=== PATIENT | female | born 1950 | race Caucasian/White ===

== ENCOUNTER 2018-12-09 06:59 | Inpatient (IN) | payer OTHER, MEDICARE ==
[2018-11-27 08:50] LABS: HEMATOCRIT 40.5 % (37.0-47.0); HEMOGLOBIN 13.8 gm/dL (12.0-15.0); MCHC 34.1 g/dL (28.0-37.0); MCV 90.8 fL (80.0-100.0); MPV 7.3 fl. (7.2-11.1); RBC 4.46 mil/uL (4.20-5.00); RDW-CV 13.7 % (10.5-14.5); WBC 8.1 thou/uL (4.0-11.0)
[2018-11-27 08:59] LABS: PROTIME 10.7 Seconds (9.20-11.50)
[2018-11-27 09:03] LABS: URINE BILIRUBIN NEGATIVE (Negative); URINE BLOOD NEGATIVE (Negative); URINE CLARITY CLEAR; URINE COLOR YELLOW; URINE GLUCOSE-RANDOM NEGATIVE (Negative); URINE KETONES NEGATIVE (Negative); URINE LEUKOCYTES-REFLEX NEGATIVE (Negative); URINE NITRITE-REFLEX NEGATIVE (Negative); URINE PROTEIN 1+ (Negative); URINE UROBILINOGEN 0.2 E.U./dl (0.2-1.0)
[2018-11-27 09:03] LABS: ALBUMIN 3.3 g/dL (3.4-5.0); CALCIUM 9.2 mg/dL (8.5-10.1); CREATININE 0.8 mg/dL (0.6-1.3); TOTAL BILIRUBIN 0.4 mg/dL (<0.1-1.0); TOTAL PROTEIN 6.9 g/dL (6.4-8.2)
--- NOTE | 2018-11-27 12:10 | EKG ---
[place] [address] ELECTROCARDIOGRAM REPORT Name: JEANNIE BALLNA JAMES Room: PRE IN [facility].#: [id number] Admission: Attend Phys: Memo Serrano Discharge: Date of : 48 Report #: [id number] THIS REPORT FOR: //name// [facility] Test Date: 2018-11-27 Test Time: 09:32:57 Pat Name: RAVEN BALL Department: Room: Gender: F [employer]: : 1950 Requested By: Bryson Vega Order Number: [id number] Reading MD: Stephen Ko Measurements Intervals [place] Rate: 70 P: 66 CA: 152 QRS: 52 QRSD: 95 T: 29 QT: 400 QTc: 432 Interpretive Statements Sinus rhythm No previous ECG available for comparison Electronically Signed On 11-27-2018 12:09:58 CDT by Stephen Ko [email or web address] <ELECTRONICALLY SIGNED> By: Stephen Ko MD, [facility] 11/27/18 1209 0932 0932 Stephen Ko MD, FACC /EPI
[~2018-12-09] VITALS: Ht 167.6 cm; Wt 90.7 kg
[~2018-12-09 06:59] MED LIST: LISINOPRIL40 MG PO; LOPRESSOR50 PO; METFORMIN HCL500 MG PO; PIOGLITAZONE15 MG; TRESIBA100 UNIT/1 SUBQ; ZOCOR80 MG PO
[2018-12-09 12:19] VITALS: BP 152/83
[2018-12-09 15:37] VITALS: BP 165/85
[2018-12-09 20:00] VITALS: BP 156/69
[2018-12-10] VITALS: BP 160/60
[2018-12-10 04:06] VITALS: BP 172/69
[2018-12-10 07:15] VITALS: BP 136/94
[2018-12-10] MEDS ORDERED: PERCOCET 5-3251 EACH PO (09:42)
[2018-12-10] MEDS ORDERED: XARELTO10 MG PO (09:46)
[2018-12-10 09:50] VITALS: BP 136/94
--- NOTE | 2018-12-10 11:58 | OP ---
[facility] [address] [place] [address] OPERATIVE REPORT Name: RAVEN BALL Room: [address] M.R.#: [id number] Admission: 12/09/18 Attend Phys: Memo Serrano Discharge: Date of : 48 Report #: [id number] THIS REPORT FOR: //name// CC: MARJAN physician/PCP Bryson Apodaca DATE OF SERVICE: 12/09/2018 PREOPERATIVE DIAGNOSIS: Right knee osteoarthritis. POSTOPERATIVE DIAGNOSIS: Right knee osteoarthritis. PROCEDURE: Right total knee arthroplasty. SURGEON: Bryson Vega II, DO [employer] MANAGER: GLYNN Calderón. ANESTHESIA: General endotracheal. ESTIMATED BLOOD LOSS: 50 mL. ANTIBIOTICS: Ancef preoperatively. DRAINS: Medium Hemovac. COMPLICATIONS: None. CONDITION OF PATIENT: Stable to recovery room. IMPLANTS: Listed in operative record and progress note. 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 The patient's H and P was performed. Site was marked. Questions were answered. Risks and benefits were discussed with the patient in detail about surgery. The patient wished to proceed, assuming all risks. DESCRIPTION OF PROCEDURE: The patient was taken to the operative suite and placed supine on the operative table, given appropriate anesthesia. A well-padded tourniquet was applied to the upper thigh, which was inflated to 300 mmHg after gravity exsanguination. The operative knee was sterilely prepped and draped. Surgery began by midline incision. This was carried down to the subcutaneous tissues. A medial parapatellar arthrotomy was performed and carried down to bone. The patella was then everted and excess soft tissue [facility] [address] [place] [id number] OPERATIVE REPORT Name: RAVEN BALL Room: [address] M.R.#: [id number] Admission: 12/09/18 Attend Phys: Memo Serrano Discharge: Date of : 48 Report #: [id number] removed from around the femur. Femoral cutting block was then applied and checked with a drop tru for rotational alignment, pinned in appropriate position and appropriate cuts were made. A 4-in-1 cutting block was then applied, checked for rotational alignment, pinned in appropriate position and appropriate cuts were made. The tibia was then exposed. Excess meniscus was removed. Retractors were placed on collateral ligaments. The tibial cutting block was then applied, pinned in appropriate position, checked with a drop tru for rotational alignment and slope and appropriate cut was made. The tibial bone was removed. The tibial base plate was then applied, checked for rotational alignment with the drop tru and pinned in appropriate position. The femur was then applied and box cut was reamed. This was then trialed with appropriate spacer, which showed excellent fit and fill and excellent stability of the knee through all range of motion. The patella was reamed in appropriate fashion and sized to appropriate size. The patella was then trialed through flexion and extension showing excellent tracking with the patella within the groove. These trials were removed. The tibia was punched in appropriate fashion. Bone ends were cleansed with Pulsavac irrigation and cement was mixed and applied to final implants. These were then malleted into position and held the knee in extension and compressed to allow cement to cure. After it cured, excess was removed using a [place] and osteotome. The wound was then copiously irrigated and the final spacer was then malleted into position. The tourniquet was deflated. Hemostasis was obtained with electrocautery. Pain cocktail was injected. PRP gel was sprayed throughout internal aspects of the knee. A medium Hemovac drain was applied. The capsule was closed with #2 FiberWire and #1 Vicryl in [id number] fashion. The skin was closed with 2-0 Vicryl and running 3-0 Monocryl. Dermabond and sterile dressing applied. Parth wrap and PolarCare applied. The patient was transported to recovery room in stable condition. Counts were correct throughout the procedure. <ELECTRONICALLY SIGNED> By: Bryson Vega II, DO 12/10/18 1158 [id number] [id number] Vega II, DO /nt
[2018-12-10 14:45] VITALS: BP 136/94
== END 2018-12-10 14:51 | disposition home health service (06) | DRG 470 ==
LOC: M.ORTHSURG 06:59 → M.TBA 06:59 → M.PRE 09:16 → M.ORTHSURG 11:32 → M.PRE 12:45 → M.ORTHSURG 12-10 14:51 → M.PRE 12-27 09:31
PROVIDERS: Orthopaedic Surgery; ADMIT Internal Medicine
PROC: 0SRC0J9 Replacement of Right Knee Joint with Synthetic Substitute, Cemented, Open Approach (ICD-10-PCS; principal; 2018-12-09)
DX: M17.11 Unilateral primary osteoarthritis, right knee (principal); D62 Acute posthemorrhagic anemia; E11.9 Type 2 diabetes mellitus without complications; I10 Essential (primary) hypertension; E78.00 Pure hypercholesterolemia, unspecified; H91.90 Unspecified hearing loss, unspecified ear; Z90.710 Acquired absence of both cervix and uterus; Z90.49 Acquired absence of other specified parts of digestive tract; Z87.891 Personal history of nicotine dependence; Z79.899 Other long term (current) drug therapy; E78.5 Hyperlipidemia, unspecified

== ENCOUNTER 2019-10-20 20:40 | Emergency (ER) | payer OTHER, MEDICARE ==
[~2019-10-20] VITALS: Ht 154.9 cm; Wt 90.7 kg
[~2019-10-20 20:40] MED LIST changes: +PERCOCET 5-3251 EACH PO; +XARELTO10 MG PO
[2019-10-20 22:04] LABS: ABSOLUTE EOSINOPHILS 0.1 thou/uL (0.0-0.7); ABSOLUTE LYMPHOCYTES 1.9 thou/uL (0.8-5.3); ABSOLUTE MONOCYTES 0.6 thou/uL (0.0-1.2); ABSOLUTE NEUTROPHILS 3.7 thou/uL (1.6-8.1); BASOPHILS 0.5 %; EOSINOPHILS 1.8 %; HEMATOCRIT 36.9 % (37.0-47.0); HEMOGLOBIN 12.7 gm/dL (12.0-15.0); LYMPHOCYTES 30.5 %; MCH 31.1 pg (26.0-34.0); MCHC 34.6 g/dL (28.0-37.0); MCV 90.1 fL (80.0-100.0); MONOCYTES 9.2 %; MPV 8.3 fl. (7.2-11.1); NUCLEATED RBCS 0 /100WBC; PLATELET COUNT* 205 thou/uL (150-400); RBC 4.09 mil/uL (4.20-5.00); RDW-CV 13.3 % (10.5-14.5); WBC 6.4 thou/uL (4.0-11.0)
[2019-10-20 22:15] LABS: CALCIUM 9.3 mg/dL (8.5-10.1); CREATININE 1.8 mg/dL (0.6-1.3); POTASSIUM 3.6 mmol/L (3.5-5.1)
[2019-10-20 22:20] LABS: PROTIME 10.6 Seconds (9.20-11.50)
[2019-10-20 22:25] LABS: ALBUMIN 3.6 g/dL (3.4-5.0); MAGNESIUM 1.9 mg/dL (1.8-2.4); TOTAL BILIRUBIN 0.3 mg/dL (<0.1-1.0); TOTAL PROTEIN 7.1 g/dL (6.4-8.2)
[2019-10-21] MEDS ORDERED: ZOFRAN ODT4 MG PO (00:56)
[2019-10-21 01:16] VITALS: BP 141/54
--- NOTE | 2019-10-22 08:52 | EKG ---
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: [place] : 1950 Requested By: Carlyn Pizarro Order Number: [id number] MD: Maximo Cummings Measurements Intervals [place] Rate: 109 P: 68 VA: 156 QRS: 59 QRSD: 102 T: -22 QT: 313 QTc: 422 Interpretive Statements Sinus tachycardia Borderline repolarization abnormality Compared to ECG 11/27/2018 09:32:57 Sinus rhythm no longer present Electronically Signed On 10-22-2019 8:52:13 CDT by Maximo Cummings [email or web address] <ELECTRONICALLY SIGNED> By: Maximo Cummings MD, [facility] 10/22/19851 51 51 Maximo Cummings MD, [facility] /EPI
== END 2019-10-21 01:19 | disposition home or self-care (01) ==
LOC: M.ERS 20:40
PROVIDERS: Emergency Medicine
DX: U07.1 COVID-19 (principal); R11.10 Vomiting, unspecified; E11.9 Type 2 diabetes mellitus without complications; E78.00 Pure hypercholesterolemia, unspecified; I10 Essential (primary) hypertension; Z79.899 Other long term (current) drug therapy; Z90.710 Acquired absence of both cervix and uterus; Z90.49 Acquired absence of other specified parts of digestive tract; Z98.890 Other specified postprocedural states